=== PATIENT | female | born 1980 ===

== ENCOUNTER 2017-06-15 14:04 | Emergency (ER) | payer MEDICAID, OTHER ==
[~2017-06-15] VITALS: Ht 154.9 cm; Wt 73.6 kg
[2017-06-15 14:39] VITALS: BP 144/107; PULSE 98; RESP 18; TEMP 98.4; O2SAT 100
[2017-06-15] MEDS ORDERED: ACETAMINOPHEN/HYDROcodone 325 MG/5 MG TAB PO ONE (15:45)
[2017-06-15] MEDS ORDERED: IBUPROFEN 800 MG TAB PO ONE (15:45)
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
[2017-06-15] MEDS ORDERED: IBUP-232 PO (16:13)
== END 2017-06-15 16:19 | disposition home or self-care (01) ==
LOC: NEPK 14:04
DX: S93.401A Sprain of unspecified ligament of right ankle, initial encounter (principal); X50.1XXA Overexertion from prolonged static or awkward postures, initial encounter; Y93.89 Activity, other specified; Y92.832 Beach as the place of occurrence of the external cause
CPT/HCPCS: 73610; 99283; E0113; L1906